=== PATIENT | male | born 1945 | race Caucasian/White ===

== ENCOUNTER 2020-08-02 11:58 | Inpatient (IN) | payer BC ==
[~2020-08-02] VITALS: Ht 373.4 cm; Wt 81.3 kg
[2020-08-02] MEDS ORDERED: AZITHROMYCIN 500 MG in DEXT 5% WATER 250 ML IV ONE (12:15)
[2020-08-02] MEDS ORDERED: DEXAMETHASONE 10 MG/ML VIAL IV ONE (12:15)
[2020-08-02] MEDS ORDERED: CEFTRIAXONE 1 G PREMIX 50 ML IV ONE (12:15)
[2020-08-02] MEDS ORDERED: DILTIAZEM HCL 5MG/ML 5ML VIAL IV ONE ×2 (12:30→14:45)
[2020-08-02 13:07] LABS: BASOPHILS % 0.2 % (0.0-2.0); HEMATOCRIT. 35.4 % (42.0-52.0); HEMOGLOBIN. 11.5 g/dL (14.0-18.0); LYMPHOCYTES % 7.6 % (20.0-50.0); MEAN CORPUSCULAR HEMOGLOBIN 30.1 pg (28.0-32.0); MEAN CORPUSCULAR VOLUME 93.1 fL (80.0-94.0); MEAN PLATELET VOLUME 8.3 fl (7.4-10.4); MONOCYTES % 4.3 % (2.0-8.0); NEUTROPHILS % 87.9 % (40.0-76.0); PLATELET 211 x1000/uL (130-400); RED BLOOD CELL COUNT 3.81 mill/uL (4.7-6.1); RED CELL DISTRIBUTION WIDTH 15.4 % (11.6-14.6)
[2020-08-02 13:10] LABS: CHLORIDE 104 mEq/L (98-107)
[2020-08-02 13:19] LABS: CREATINE KINASE 26 IU/L (39-308)
[2020-08-02 13:32] LABS: D-DIMER 0.97 mg/L FEU (<0.50); INR 1.2; PROTHROMBIN TIME 12.4 sec (9.6-11.0)
[2020-08-02 14:43] LABS: BG BASE EXCESS 1.6 mmol/L (-2.0-2.0); BG CARBOXYHEMOGLOBIN 0.1 % (0.5-1.5); BG DEOXYHEMOGLOBIN 5.7 % (0.0-5.0); BG FRACTION INSPIRED OXYGEN 44; BG HCO3 ACT 23.6 mmol/L (22.0-26.0); BG METHEMOGLOBIN 0.3 % (0.0-1.5); BG OXYGEN SATURATION 94.3 % (92.0-98.5); BG OXYHEMOGLOBIN 93.9 % (94.0-97.0); BG PCO2 29.1 mmHg (35.0-45.0); BG PH 7.527 (7.350-7.450); BG PO2 69.8 mmHg (75.0-100.0); BG SAMPLE SITE RIGHT RADIAL; BG VENT MODE NASAL CANNULA
[2020-08-02] MEDS ORDERED: FUROSEMIDE 20MG/2ML VIAL IVP ONE (15:00)
[2020-08-03 05:17] LABS: CLARITY URINE CLEAR (CLEAR); COLOR URINE DARK YELLOW (YELLOW); KETONES URINE TRACE (NEGATIVE); LEUKOCYTE ESTERASE URINE TRACE (NEGATIVE); NITRITE URINE NEGATIVE (NEGATIVE); OCCULT BLOOD URINE NEGATIVE (NEGATIVE); PROTEIN URINE 2+ (NEGATIVE); SPECIFIC GRAVITY URINE 1.031 (1.005-1.030)
[2020-08-03] MEDS ORDERED: DILTIAZEM HCL 5MG/ML 5ML VIAL IV NR (08:15)
[2020-08-03] MEDS: METOPROLOL TARTRATE 50MG TABLET PO SCH ×2 (09:00→13:52)
[2020-08-03] MEDS ORDERED: ACETAMINOPHEN 325MG TABLET PO PRN ×2 (10:45)
[2020-08-03] MEDS ORDERED: DOCUSATE SODIUM 100MG CAPSULE PO PRN (10:45)
[2020-08-03] MEDS ORDERED: GUAIFENESIN 200MG/10ML SUGAR FREE UDC PO PRN (10:45)
[2020-08-03] MEDS ORDERED: NA PHOS,M-B/NA PHOS,DI-BA ENEMA 118ML PR PRN (10:45)
[2020-08-03] MEDS ORDERED: MAGNESIUM/ALUMINUM HYDROXIDE/SIMETHICONE 30ML UDC PO PRN (10:45)
[2020-08-03] MEDS ORDERED: AMIODARONE HCL 50MG/ML 3ML VIAL IV ONE (10:45)
[2020-08-03] MEDS ORDERED: ACETAMINOPHEN 650MG/20.3ML UDC GT PRN ×2 (10:45)
[2020-08-03] MEDS ORDERED: ONDANSETRON HCL 4MG/2ML INJ IV PRN (10:45)
[2020-08-03] MEDS ORDERED: AMIODARONE HCL 900 MG in DEXT 5% WATER 482 ML IV PRN ×2 (10:45→20:15)
[2020-08-03] MEDS ORDERED: ACETAMINOPHEN 650MG SUPP PR PRN ×2 (10:45)
[2020-08-03] MEDS ORDERED: HYDROCODONE/APAP 7.5/325MG 1 TAB TABLET PO PRN (10:45)
[2020-08-03] MEDS ORDERED: CLONIDINE 0.1MG TABLET PO PRN (10:45)
[2020-08-03] MEDS ORDERED: ENOXAPARIN 40MG/0.4ML SYR SUBCUT SCH (12:00)
[2020-08-03] MEDS: DILTIAZEM HCL 30MG TABLET PO SCH ×3 (12:00→18:40)
[2020-08-03] MEDS ORDERED: SODIUM CHLORIDE 0.9% 1000ML BAG (SEPSIS BOLUS) IV ONE (12:45)
[2020-08-03] MEDS ORDERED: DIGOXIN 500MCG/2ML AMP IV NR ×3 (12:45→23:30)
[2020-08-03] MEDS ORDERED: SODIUM CHLORIDE 0.9% 500 ML IV ONE (12:45)
[2020-08-03 15:33] LABS: HEMATOCRIT. 35.3 % (42.0-52.0); HEMOGLOBIN. 11.3 g/dL (14.0-18.0); MEAN CORPUSCULAR HEMOGLOBIN 29.9 pg (28.0-32.0); MEAN CORPUSCULAR VOLUME 93.2 fL (80.0-94.0); PLATELET 211 x1000/uL (130-400); RED BLOOD CELL COUNT 3.79 mill/uL (4.7-6.1); RED CELL DISTRIBUTION WIDTH 15.5 % (11.6-14.6)
[2020-08-03 15:37] LABS: CHLORIDE 100 mEq/L (98-107)
[2020-08-03 15:47] LABS: CREATINE KINASE 224 IU/L (39-308)
[2020-08-03 17:15] LABS: PLATELET ESTIMATE NORMAL
[2020-08-03] MEDS: ENOXAPARIN 60MG/0.6ML SYR SUBCUT SCH (17:29)
[2020-08-03] MEDS ORDERED: ALBUTEROL 6.7GM HFA INHALER ORI PRN (20:15)
[2020-08-04 00:07] LABS: CREATINE KINASE MB FRACTION 1.1 ng/mL (0.5-3.6)
[2020-08-04 06:17] LABS: HEMATOCRIT. 34.1 % (42.0-52.0); HEMOGLOBIN. 11.1 g/dL (14.0-18.0); MEAN CORPUSCULAR HEMOGLOBIN 29.9 pg (28.0-32.0); MEAN CORPUSCULAR VOLUME 91.8 fL (80.0-94.0); MEAN PLATELET VOLUME 7.9 fl (7.4-10.4); PLATELET 182 x1000/uL (130-400); RED BLOOD CELL COUNT 3.71 mill/uL (4.7-6.1); RED CELL DISTRIBUTION WIDTH 15.2 % (11.6-14.6)
[2020-08-04 06:25] LABS: CHLORIDE 99 mEq/L (98-107)
[2020-08-04 06:31] LABS: LDL CHOLESTEROL 54 mg/dL (5-100)
[2020-08-04 06:33] LABS: HDL CHOLESTEROL 32 mg/dL (40-59)
[2020-08-04 06:53] LABS: T4 FREE 1.07 ng/dL (0.76-1.46)
[2020-08-04] MEDS: AZITHROMYCIN 500 MG in SODIUM CHLORIDE 0.9% 250 ML IV SCH (07:56)
[2020-08-04] MEDS: DILTIAZEM HCL 30MG TABLET PO SCH (07:57)
[2020-08-04 08:23] LABS: PLATELET ESTIMATE NORMAL
[2020-08-04] MEDS: METOPROLOL TARTRATE 50MG TABLET PO SCH ×2 (09:00→21:38)
[2020-08-04] MEDS: ENOXAPARIN 60MG/0.6ML SYR SUBCUT SCH ×2 (10:27→18:07)
[2020-08-04 15:13] LABS: CREATINE KINASE 188 IU/L (39-308)
[2020-08-04 15:16] LABS: CREATINE KINASE MB FRACTION < 1.0 ng/mL (0.5-3.6)
[2020-08-04 15:21] LABS: T4 FREE 1.08 ng/dL (0.76-1.46)
[2020-08-05] MEDS: AZITHROMYCIN 500 MG in SODIUM CHLORIDE 0.9% 250 ML IV SCH (01:45)
[2020-08-05 05:47] LABS: CREATINE KINASE MB FRACTION < 1.0 ng/mL (0.5-3.6)
[2020-08-05 05:50] LABS: CREATINE KINASE 110 IU/L (39-308)
[2020-08-05] MEDS: ENOXAPARIN 60MG/0.6ML SYR SUBCUT SCH (07:35)
[2020-08-05] MEDS: METOPROLOL TARTRATE 50MG TABLET PO SCH (10:05)
[2020-08-05] MEDS: DEXAMETHASONE 4MG TABLET PO SCH (14:09)
[2020-08-06] MEDS: ENOXAPARIN 60MG/0.6ML SYR SUBCUT SCH ×3 (00:30→18:00)
[2020-08-06] MEDS: METOPROLOL TARTRATE 50MG TABLET PO SCH ×3 (00:31→23:14)
[2020-08-06] MEDS: DEXAMETHASONE 4MG TABLET PO SCH ×2 (00:31→23:14)
[2020-08-06] MEDS: AMIODARONE HCL 200 MG TABLET PO SCH ×3 (00:42→23:14)
[2020-08-06] MEDS: AZITHROMYCIN 500 MG in DEXT 5% WATER 250 ML IV SCH (02:42)
[2020-08-07] MEDS: DEXT 5%/0.9% NACL 1,000 ML IV SCH ×2 (00:19→13:14)
[2020-08-07] MEDS: AZITHROMYCIN 500 MG in DEXT 5% WATER 250 ML IV SCH (01:26)
[2020-08-07] MEDS: ENOXAPARIN 60MG/0.6ML SYR SUBCUT SCH ×2 (05:49→17:55)
[2020-08-07] MEDS: AMIODARONE HCL 200 MG TABLET PO SCH (09:00)
[2020-08-07] MEDS: METOPROLOL TARTRATE 50MG TABLET PO SCH (09:00)
[2020-08-07 12:00] VITALS: BP_SYST 121; BP_SYST 160; BP_DIAS 74
[2020-08-07 16:00] VITALS: BP 109/56
[2020-08-07 20:00] VITALS: BP 100/68
[2020-08-07 22:00] LABS: HEMATOCRIT. 28.6 % (42.0-52.0); HEMOGLOBIN. 9.6 g/dL (14.0-18.0); MEAN CORPUSCULAR HEMOGLOBIN 30.4 pg (28.0-32.0); MEAN CORPUSCULAR VOLUME 90.7 fL (80.0-94.0); MEAN PLATELET VOLUME 8.4 fl (7.4-10.4); PLATELET 182 x1000/uL (130-400); RED BLOOD CELL COUNT 3.15 mill/uL (4.7-6.1); RED CELL DISTRIBUTION WIDTH 14.7 % (11.6-14.6)
[2020-08-07 22:15] LABS: CHLORIDE 104 mEq/L (98-107)
[2020-08-07 22:34] LABS: PLATELET ESTIMATE NORMAL
[2020-08-08] VITALS: BP 111/70
[2020-08-08] MEDS: DEXAMETHASONE 4MG TABLET PO SCH ×2 (01:00→22:53)
[2020-08-08] MEDS: AZITHROMYCIN 500 MG in DEXT 5% WATER 250 ML IV SCH (01:00)
[2020-08-08] MEDS: METOPROLOL TARTRATE 50MG TABLET PO SCH ×2 (01:01→08:56)
[2020-08-08] MEDS: AMIODARONE HCL 200 MG TABLET PO SCH ×3 (01:02→22:53)
[2020-08-08 04:00] VITALS: BP 95/54
[2020-08-08] MEDS: DEXT 5%/0.9% NACL 1,000 ML IV SCH ×2 (07:09→22:54)
[2020-08-08] MEDS: ENOXAPARIN 60MG/0.6ML SYR SUBCUT SCH ×2 (07:09→18:59)
[2020-08-08 08:00] VITALS: BP 99/53
[2020-08-08] MEDS ORDERED: DABI150C PO (08:03)
[2020-08-08] MEDS ORDERED: SERT50TA12 PO (08:08)
[2020-08-08] MEDS ORDERED: METO100T9 PO (08:08)
[2020-08-08] MEDS ORDERED: EZET10TA13 PO (08:08)
[2020-08-08] MEDS ORDERED: LEVO200T8 PO (08:08)
[2020-08-08] MEDS ORDERED: ATOR-2 PO (08:14)
[2020-08-08] MEDS ORDERED: TEST75GE TP (08:14)
[2020-08-08] MEDS ORDERED: OMEP40CA12 PO (08:14)
[2020-08-08] MEDS ORDERED: ALBU2.5V13 IH (08:14)
[2020-08-08] MEDS ORDERED: ERGO500013 (08:14)
[2020-08-08] MEDS ORDERED: SODIUM CHLORIDE 0.9% 500 ML IV ONE (12:30)
[2020-08-08 12:56] VITALS: BP 95/58
[2020-08-08 17:01] VITALS: BP 116/75
[2020-08-08 20:00] VITALS: BP 107/62
[2020-08-09] VITALS: BP 105/52
[2020-08-09] MEDS: AZITHROMYCIN 500 MG in DEXT 5% WATER 250 ML IV SCH (00:56)
[2020-08-09 04:00] VITALS: BP 113/73
[2020-08-09] MEDS: ENOXAPARIN 60MG/0.6ML SYR SUBCUT SCH ×2 (05:37→17:33)
[2020-08-09] MEDS: AMIODARONE HCL 200 MG TABLET PO SCH ×2 (09:10→22:06)
[2020-08-09 12:00] VITALS: BP 117/84
[2020-08-09 16:00] VITALS: BP 124/75
[2020-08-09] MEDS: DEXT 5%/0.9% NACL 1,000 ML IV SCH (17:33)
[2020-08-09 20:00] VITALS: BP 117/58
[2020-08-09] MEDS: DEXAMETHASONE 4MG TABLET PO SCH (22:05)
[2020-08-10] VITALS: BP 116/70
[2020-08-10 04:00] VITALS: BP 129/89
[2020-08-10] MEDS: ENOXAPARIN 60MG/0.6ML SYR SUBCUT SCH (05:30)
[2020-08-10 08:00] VITALS: BP 134/83
[2020-08-10] MEDS: AMIODARONE HCL 200 MG TABLET PO SCH ×2 (09:24→22:25)
[2020-08-10] MEDS: DEXT 5%/0.9% NACL 1,000 ML IV SCH (09:25)
[2020-08-10] MEDS: METOPROLOL TARTRATE 25MG TABLET PO SCH ×2 (09:27→22:26)
[2020-08-10 12:00] VITALS: BP 112/61
[2020-08-10 16:00] VITALS: BP 148/88
[2020-08-10] MEDS: APIXABAN 5 MG TABLET PO SCH (17:57)
[2020-08-10 20:00] VITALS: BP 135/78
[2020-08-10] MEDS: DEXAMETHASONE 4MG TABLET PO SCH (22:26)
[2020-08-11] VITALS: BP 128/60
[2020-08-11 04:00] VITALS: BP 130/70
[2020-08-11 08:00] VITALS: BP 130/86
[2020-08-11] MEDS: AMIODARONE HCL 200 MG TABLET PO SCH ×2 (09:27→21:27)
[2020-08-11] MEDS: APIXABAN 5 MG TABLET PO SCH ×2 (09:27→18:02)
[2020-08-11] MEDS: METOPROLOL TARTRATE 25MG TABLET PO SCH (09:28)
[2020-08-11 12:00] VITALS: BP 122/86
[2020-08-11 16:00] VITALS: BP 139/82
[2020-08-11] MEDS: ALBUTEROL 6.7GM HFA INHALER ORI SCH ×2 (18:02→21:27)
[2020-08-11 20:00] VITALS: BP 129/80
[2020-08-11] MEDS: DEXT 5%/0.9% NACL 1,000 ML IV SCH (21:25)
[2020-08-11] MEDS: DEXAMETHASONE 4MG TABLET PO SCH (21:26)
[2020-08-11] MEDS: METOPROLOL TARTRATE 50MG TABLET PO SCH (21:26)
[2020-08-12] VITALS: BP 125/77
[2020-08-12] MEDS: ALBUTEROL 6.7GM HFA INHALER ORI SCH ×4 (03:14→21:43)
[2020-08-12 04:00] VITALS: BP 136/88
[2020-08-12 08:00] VITALS: BP 120/80
[2020-08-12] MEDS: CHOLECALCIFEROL (D3) 1000 UNIT TABLET PO SCH (09:00)
[2020-08-12] MEDS: ASCORBIC ACID 500 MG TABLET PO SCH ×2 (09:10→16:37)
[2020-08-12] MEDS: AMIODARONE HCL 200 MG TABLET PO SCH ×2 (09:10→21:42)
[2020-08-12] MEDS: METOPROLOL TARTRATE 50MG TABLET PO SCH ×2 (09:10→21:00)
[2020-08-12] MEDS: APIXABAN 5 MG TABLET PO SCH ×2 (09:11→16:37)
[2020-08-12] MEDS: ZINC SULFATE 220 MG ( 50 ) CAPSULE PO SCH (09:11)
[2020-08-12] MEDS ORDERED: FUROSEMIDE 40MG/4ML VIAL IVP SCH (09:30)
[2020-08-12 12:00] VITALS: BP 131/83
[2020-08-12 16:00] VITALS: BP 125/76
[2020-08-12] MEDS ORDERED: CEFTRIAXONE 1,000 MG in DEXTROSE 5% WATER 50 ML IV SCH (18:00)
[2020-08-12] MEDS: CEFEPIME 2,000 MG in DEXT 5% WATER 100 ML IV SCH (18:22)
[2020-08-12] MEDS: DOXYCYCLINE 100 MG in DEXT 5% WATER 100 ML IV SCH (19:30)
[2020-08-12 20:00] VITALS: BP 101/76
[2020-08-12 21:40] LABS: HEMATOCRIT. 25.8 % (42.0-52.0); HEMOGLOBIN. 8.5 g/dL (14.0-18.0); MEAN CORPUSCULAR HEMOGLOBIN 30.5 pg (28.0-32.0); MEAN CORPUSCULAR VOLUME 92.1 fL (80.0-94.0); MEAN PLATELET VOLUME 8.2 fl (7.4-10.4); PLATELET 245 x1000/uL (130-400); RED CELL DISTRIBUTION WIDTH 15.5 % (11.6-14.6)
[2020-08-12] MEDS: DEXAMETHASONE 4MG TABLET PO SCH (21:42)
[2020-08-12 21:53] LABS: CHLORIDE 102 mEq/L (98-107)
[2020-08-12 22:22] LABS: NUCLEATED RED BLOOD CELLS 1 /100 WBC; PLATELET ESTIMATE NORMAL
[2020-08-13] VITALS: BP 109/65
[2020-08-13 04:00] VITALS: BP 106/74
[2020-08-13] MEDS: ALBUTEROL 6.7GM HFA INHALER ORI SCH ×4 (04:00→21:03)
[2020-08-13] MEDS: DOXYCYCLINE 100 MG in DEXT 5% WATER 100 ML IV SCH ×2 (04:54→20:58)
[2020-08-13] MEDS: CEFEPIME 2,000 MG in DEXT 5% WATER 100 ML IV SCH ×2 (04:54→18:42)
[2020-08-13 06:40] LABS: HEMATOCRIT. 25.9 % (42.0-52.0); HEMOGLOBIN. 8.6 g/dL (14.0-18.0); MEAN CORPUSCULAR HEMOGLOBIN 30.5 pg (28.0-32.0); MEAN CORPUSCULAR VOLUME 92.1 fL (80.0-94.0); PLATELET 225 x1000/uL (130-400); RED BLOOD CELL COUNT 2.81 mill/uL (4.7-6.1); RED CELL DISTRIBUTION WIDTH 15.5 % (11.6-14.6)
[2020-08-13 06:49] LABS: CHLORIDE 103 mEq/L (98-107)
[2020-08-13 06:56] LABS: PHOSPHORUS 3.7 mg/dL (2.5-4.9)
[2020-08-13 07:50] LABS: INR 1.3
[2020-08-13 08:00] VITALS: BP 124/68
[2020-08-13] MEDS: ASCORBIC ACID 500 MG TABLET PO SCH ×2 (09:00→16:32)
[2020-08-13] MEDS: APIXABAN 5 MG TABLET PO SCH ×2 (09:51→16:32)
[2020-08-13] MEDS: ZINC SULFATE 220 MG ( 50 ) CAPSULE PO SCH (09:52)
[2020-08-13] MEDS: CHOLECALCIFEROL (D3) 1000 UNIT TABLET PO SCH (09:52)
[2020-08-13] MEDS: METOPROLOL TARTRATE 50MG TABLET PO SCH ×2 (09:52→20:54)
[2020-08-13] MEDS: AMIODARONE HCL 200 MG TABLET PO SCH ×3 (09:54→20:58)
[2020-08-13 12:00] VITALS: BP 113/68
[2020-08-13 14:25] LABS: NUCLEATED RED BLOOD CELLS 1 /100 WBC; PLATELET ESTIMATE NORMAL
[2020-08-13 16:00] VITALS: BP 108/70
[2020-08-13] MEDS ORDERED: FUROSEMIDE 40MG/4ML VIAL IVP NR (17:00)
[2020-08-13] MEDS ORDERED: IVERMECTIN 3 MG TABLET PO NR (20:00)
[2020-08-13] MEDS: DEXAMETHASONE 4MG TABLET PO SCH (21:02)
[2020-08-14] VITALS: BP 118/64
[2020-08-14 04:00] VITALS: BP 114/68
[2020-08-14] MEDS: ALBUTEROL 6.7GM HFA INHALER ORI SCH ×4 (04:59→21:20)
[2020-08-14] MEDS: DOXYCYCLINE 100 MG in DEXT 5% WATER 100 ML IV SCH ×2 (04:59→20:06)
[2020-08-14 08:00] VITALS: BP 107/51
[2020-08-14] MEDS: CEFEPIME 2,000 MG in DEXT 5% WATER 100 ML IV SCH ×2 (08:12→17:37)
[2020-08-14] MEDS: CHOLECALCIFEROL (D3) 1000 UNIT TABLET PO SCH (09:00)
[2020-08-14] MEDS: ZINC SULFATE 220 MG ( 50 ) CAPSULE PO SCH (10:17)
[2020-08-14] MEDS: FUROSEMIDE 20MG/2ML VIAL IVP SCH (10:17)
[2020-08-14] MEDS: APIXABAN 5 MG TABLET PO SCH ×2 (10:18→17:37)
[2020-08-14] MEDS: AMIODARONE HCL 200 MG TABLET PO SCH ×2 (10:18→21:20)
[2020-08-14] MEDS: ASCORBIC ACID 500 MG TABLET PO SCH ×2 (10:18→17:38)
[2020-08-14] MEDS: METOPROLOL TARTRATE 50MG TABLET PO SCH ×2 (10:19→21:00)
[2020-08-14 16:00] VITALS: BP 101/70
[2020-08-14 20:00] VITALS: BP 101/64
[2020-08-15] VITALS: BP 109/49
[2020-08-15 04:00] VITALS: BP 99/65
[2020-08-15] MEDS: ALBUTEROL 6.7GM HFA INHALER ORI SCH ×4 (05:16→21:55)
[2020-08-15] MEDS: DOXYCYCLINE 100 MG in DEXT 5% WATER 100 ML IV SCH ×2 (05:16→17:17)
[2020-08-15] MEDS: CEFEPIME 2,000 MG in DEXT 5% WATER 100 ML IV SCH ×2 (07:28→17:17)
[2020-08-15 08:00] VITALS: BP 91/62
[2020-08-15] MEDS: AMIODARONE HCL 200 MG TABLET PO SCH ×2 (09:53→21:54)
[2020-08-15] MEDS: FUROSEMIDE 20MG/2ML VIAL IVP SCH (09:53)
[2020-08-15] MEDS: CHOLECALCIFEROL (D3) 1000 UNIT TABLET PO SCH (09:53)
[2020-08-15] MEDS: ZINC SULFATE 220 MG ( 50 ) CAPSULE PO SCH (09:53)
[2020-08-15] MEDS: APIXABAN 5 MG TABLET PO SCH ×2 (09:53→17:16)
[2020-08-15] MEDS: METOPROLOL TARTRATE 50MG TABLET PO SCH ×2 (09:56→21:00)
[2020-08-15] MEDS: ASCORBIC ACID 500 MG TABLET PO SCH ×2 (09:58→17:16)
[2020-08-15 12:00] VITALS: BP 91/62
[2020-08-15 16:00] VITALS: BP 92/51
[2020-08-15 20:00] VITALS: BP 102/53
[2020-08-16] VITALS: BP 104/61
[2020-08-16 04:00] VITALS: BP 94/52
[2020-08-16] MEDS: ALBUTEROL 6.7GM HFA INHALER ORI SCH ×4 (04:01→21:39)
[2020-08-16] MEDS: CEFEPIME 2,000 MG in DEXT 5% WATER 100 ML IV SCH ×2 (05:06→17:48)
[2020-08-16] MEDS: DOXYCYCLINE 100 MG in DEXT 5% WATER 100 ML IV SCH ×2 (05:44→17:57)
[2020-08-16 08:00] VITALS: BP 104/50
[2020-08-16] MEDS ORDERED: IVERMECTIN 3 MG TABLET PO NR (09:00)
[2020-08-16] MEDS: METOPROLOL TARTRATE 50MG TABLET PO SCH ×2 (09:00→21:00)
[2020-08-16] MEDS: CHOLECALCIFEROL (D3) 1000 UNIT TABLET PO SCH (11:34)
[2020-08-16] MEDS: ZINC SULFATE 220 MG ( 50 ) CAPSULE PO SCH (11:34)
[2020-08-16] MEDS: APIXABAN 5 MG TABLET PO SCH ×2 (11:34→17:47)
[2020-08-16] MEDS: AMIODARONE HCL 200 MG TABLET PO SCH ×2 (11:35→21:37)
[2020-08-16] MEDS: FUROSEMIDE 20MG/2ML VIAL IVP SCH (11:36)
[2020-08-16] MEDS: ASCORBIC ACID 500 MG TABLET PO SCH ×2 (11:40→17:47)
[2020-08-16 12:00] VITALS: BP 114/88
[2020-08-16 16:00] VITALS: BP 108/64
[2020-08-16 20:00] VITALS: BP 105/52
[2020-08-17] VITALS: BP 111/60
[2020-08-17] MEDS: ALBUTEROL 6.7GM HFA INHALER ORI SCH ×4 (03:16→21:01)
[2020-08-17 04:00] VITALS: BP 120/63
[2020-08-17] MEDS: CEFEPIME 2,000 MG in DEXT 5% WATER 100 ML IV SCH (05:09)
[2020-08-17] MEDS: DOXYCYCLINE 100 MG in DEXT 5% WATER 100 ML IV SCH (06:03)
[2020-08-17 08:00] VITALS: BP 110/70
[2020-08-17] MEDS: METOPROLOL TARTRATE 50MG TABLET PO SCH ×2 (09:00→21:00)
[2020-08-17] MEDS: CHOLECALCIFEROL (D3) 1000 UNIT TABLET PO SCH (09:43)
[2020-08-17] MEDS: ASCORBIC ACID 500 MG TABLET PO SCH ×2 (09:43→17:23)
[2020-08-17] MEDS: FUROSEMIDE 20MG/2ML VIAL IVP SCH (09:43)
[2020-08-17] MEDS: AMIODARONE HCL 200 MG TABLET PO SCH ×2 (09:44→21:01)
[2020-08-17] MEDS: ZINC SULFATE 220 MG ( 50 ) CAPSULE PO SCH (09:44)
[2020-08-17] MEDS: APIXABAN 5 MG TABLET PO SCH ×2 (09:45→17:23)
[2020-08-17 12:00] VITALS: BP 90/46
[2020-08-17 16:00] VITALS: BP 90/48
[2020-08-17 20:00] VITALS: BP 99/55
[2020-08-18] VITALS: BP 99/51
[2020-08-18 04:00] VITALS: BP 117/58
[2020-08-18] MEDS: LEVOTHYROXINE SODIUM 200MCG TABLET PO SCH (05:50)
[2020-08-18] MEDS: ALBUTEROL 6.7GM HFA INHALER ORI SCH ×4 (05:50→21:22)
[2020-08-18 08:00] VITALS: BP 100/53
[2020-08-18] MEDS: METOPROLOL TARTRATE 50MG TABLET PO SCH ×2 (09:00→21:00)
[2020-08-18] MEDS: ASCORBIC ACID 500 MG TABLET PO SCH (09:00)
[2020-08-18] MEDS: PANTOPRAZOLE SODIUM 40 MG/VIAL IV SCH (09:00)
[2020-08-18] MEDS: FUROSEMIDE 20MG/2ML VIAL IVP SCH (09:00)
[2020-08-18] MEDS: APIXABAN 5 MG TABLET PO SCH (09:37)
[2020-08-18] MEDS: ZINC SULFATE 220 MG ( 50 ) CAPSULE PO SCH (09:37)
[2020-08-18] MEDS: AMIODARONE HCL 200 MG TABLET PO SCH ×2 (09:37→21:22)
[2020-08-18] MEDS: CHOLECALCIFEROL (D3) 1000 UNIT TABLET PO SCH (09:37)
[2020-08-18 12:44] LABS: BG BASE EXCESS 12.1 mmol/L (-2.0-2.0); BG CARBOXYHEMOGLOBIN 0.9 % (0.5-1.5); BG DEOXYHEMOGLOBIN 1.2 % (0.0-5.0); BG FRACTION INSPIRED OXYGEN 44; BG HCO3 ACT 36.6 mmol/L (22.0-26.0); BG METHEMOGLOBIN 0.4 % (0.0-1.5); BG OXYGEN SATURATION 98.8 % (92.0-98.5); BG OXYHEMOGLOBIN 97.5 % (94.0-97.0); BG PCO2 48.4 mmHg (35.0-45.0); BG PH 7.496 (7.350-7.450); BG PO2 137.8 mmHg (75.0-100.0); BG SAMPLE SITE RIGHT RADIAL; BG TOTAL HEMOGLOBIN 7.8 g/dL (12.0-18.0); BG VENT MODE MASK - SIMPLE
[2020-08-18 15:31] LABS: HEMATOCRIT. 22.9 % (42.0-52.0); HEMOGLOBIN. 7.5 g/dL (14.0-18.0); MEAN CORPUSCULAR HEMOGLOBIN 30.8 pg (28.0-32.0); MEAN CORPUSCULAR VOLUME 94.8 fL (80.0-94.0); PLATELET 193 x1000/uL (130-400); RED BLOOD CELL COUNT 2.42 mill/uL (4.7-6.1)
[2020-08-18 15:36] LABS: CHLORIDE 96 mEq/L (98-107)
[2020-08-18 16:00] VITALS: BP 110/70
[2020-08-18] MEDS ORDERED: PANTOPRAZOLE SODIUM 40 MG/VIAL IV SCH (17:45)
[2020-08-18 19:25] LABS: PLATELET ESTIMATE NORMAL
[2020-08-18 20:00] VITALS: BP 100/66
[2020-08-19] VITALS: BP 101/70
[2020-08-19 04:00] VITALS: BP 100/63
[2020-08-19] MEDS: ALBUTEROL 6.7GM HFA INHALER ORI SCH ×4 (05:19→21:05)
[2020-08-19] MEDS: LEVOTHYROXINE SODIUM 200MCG TABLET PO SCH (06:10)
[2020-08-19 08:00] VITALS: BP 90/52
[2020-08-19] MEDS: METOPROLOL TARTRATE 50MG TABLET PO SCH ×2 (09:00→21:00)
[2020-08-19] MEDS: FUROSEMIDE 20MG/2ML VIAL IVP SCH (09:00)
[2020-08-19] MEDS: CHOLECALCIFEROL (D3) 1000 UNIT TABLET PO SCH (09:27)
[2020-08-19] MEDS: AMIODARONE HCL 200 MG TABLET PO SCH ×2 (09:27→21:05)
[2020-08-19] MEDS: APIXABAN 5 MG TABLET PO SCH ×2 (09:27→18:28)
[2020-08-19] MEDS: ZINC SULFATE 220 MG ( 50 ) CAPSULE PO SCH (09:28)
[2020-08-19] MEDS: PANTOPRAZOLE SODIUM 40 MG/VIAL IV SCH (09:28)
[2020-08-19] MEDS: DOCUSATE SODIUM 100MG CAPSULE PO PRN (10:56)
[2020-08-19 12:00] VITALS: BP 90/52
[2020-08-19 12:53] LABS: BG BASE EXCESS 10.3 mmol/L (-2.0-2.0); BG CARBOXYHEMOGLOBIN 1.2 % (0.5-1.5); BG DEOXYHEMOGLOBIN 14.2 % (0.0-5.0); BG HCO3 ACT 34.7 mmol/L (22.0-26.0); BG METHEMOGLOBIN 0.1 % (0.0-1.5); BG OXYGEN SATURATION 85.6 % (92.0-98.5); BG OXYHEMOGLOBIN 84.5 % (94.0-97.0); BG PCO2 46.9 mmHg (35.0-45.0); BG PH 7.487 (7.350-7.450); BG PO2 49.1 mmHg (75.0-100.0); BG SAMPLE SITE RIGHT RADIAL; BG TOTAL HEMOGLOBIN 7.9 g/dL (12.0-18.0); BG VENT MODE ROOM AIR
[2020-08-19 16:00] VITALS: BP 95/53
[2020-08-19 18:38] LABS: TOTAL IRON BINDING CAPACITY 252 ug/dL (250-450)
[2020-08-19 18:53] LABS: FOLIC ACID (FOLATE) SERUM 16.8 ng/mL (>5.38)
[2020-08-19 18:59] LABS: HEPATITIS B SURFACE ANTIGEN NEGATIVE
[2020-08-19 19:29] LABS: HEPATITIS A AB IGM NEGATIVE (NEGATIVE)
[2020-08-19 20:00] VITALS: BP 100/52
[2020-08-19] MEDS: IRON SUCROSE COMPLEX 100 MG/5 ML ML IV SCH (23:54)
[2020-08-20] VITALS: BP 118/66
[2020-08-20] MEDS: ALBUTEROL 6.7GM HFA INHALER ORI SCH ×4 (03:57→21:50)
[2020-08-20 04:00] VITALS: BP 100/60
[2020-08-20] MEDS: LEVOTHYROXINE SODIUM 200MCG TABLET PO SCH (06:01)
[2020-08-20 08:16] VITALS: BP 99/63
[2020-08-20] MEDS: FUROSEMIDE 20MG/2ML VIAL IVP SCH (08:57)
[2020-08-20] MEDS: METOPROLOL TARTRATE 50MG TABLET PO SCH ×2 (08:57→21:00)
[2020-08-20] MEDS: PANTOPRAZOLE SODIUM 40 MG/VIAL IV SCH (09:06)
[2020-08-20] MEDS: APIXABAN 5 MG TABLET PO SCH ×2 (09:06→17:53)
[2020-08-20] MEDS: CHOLECALCIFEROL (D3) 1000 UNIT TABLET PO SCH (09:07)
[2020-08-20] MEDS: AMIODARONE HCL 200 MG TABLET PO SCH ×2 (09:07→21:00)
[2020-08-20] MEDS: ZINC SULFATE 220 MG ( 50 ) CAPSULE PO SCH (09:07)
[2020-08-20 12:15] VITALS: BP 98/53
[2020-08-20 16:03] LABS: BASOPHILS % 0.5 % (0.0-2.0); EOSINOPHILS % 2.2 % (0.0-5.0); HEMATOCRIT. 23.6 % (42.0-52.0); HEMOGLOBIN. 7.7 g/dL (14.0-18.0); LYMPHOCYTES % 9.2 % (20.0-50.0); MEAN CORPUSCULAR HEMOGLOBIN 30.7 pg (28.0-32.0); MEAN CORPUSCULAR VOLUME 94.1 fL (80.0-94.0); MEAN PLATELET VOLUME 7.5 fl (7.4-10.4); MONOCYTES % 4.8 % (2.0-8.0); NEUTROPHILS % 83.3 % (40.0-76.0); PLATELET 199 x1000/uL (130-400); RED CELL DISTRIBUTION WIDTH 16.9 % (11.6-14.6)
[2020-08-20 16:08] VITALS: BP 115/52
[2020-08-20 16:30] LABS: CHLORIDE 96 mEq/L (98-107)
[2020-08-20 20:00] VITALS: BP 97/63
[2020-08-20] MEDS: IRON SUCROSE COMPLEX 100 MG/5 ML ML IV SCH (22:22)
[2020-08-21] VITALS (8 sets, daily range): BP systolic 90–171; BP diastolic 47–101
[2020-08-21] MEDS: ALBUTEROL 6.7GM HFA INHALER ORI SCH ×4 (03:39→23:07)
[2020-08-21] MEDS: LEVOTHYROXINE SODIUM 200MCG TABLET PO SCH (06:13)
[2020-08-21] MEDS: METOPROLOL TARTRATE 50MG TABLET PO SCH ×2 (09:46→21:00)
[2020-08-21] MEDS: ZINC SULFATE 220 MG ( 50 ) CAPSULE PO SCH (09:46)
[2020-08-21] MEDS: PANTOPRAZOLE SODIUM 40 MG/VIAL IV SCH (09:46)
[2020-08-21] MEDS: CHOLECALCIFEROL (D3) 1000 UNIT TABLET PO SCH (09:46)
[2020-08-21] MEDS: FUROSEMIDE 20MG/2ML VIAL IVP SCH (09:46)
[2020-08-21] MEDS: AMIODARONE HCL 200 MG TABLET PO SCH ×2 (09:47→23:07)
[2020-08-21] MEDS: APIXABAN 5 MG TABLET PO SCH (17:27)
[2020-08-21] MEDS ORDERED: SODIUM CHLORIDE 0.9% 1000ML BAG (SEPSIS BOLUS) IV NR (21:45)
[2020-08-22] VITALS (8 sets, daily range): BP systolic 98–139; BP diastolic 53–81
[2020-08-22] MEDS: DOCUSATE SODIUM 100MG CAPSULE PO PRN (01:16)
[2020-08-22] MEDS: ALBUTEROL 6.7GM HFA INHALER ORI SCH ×4 (04:12→20:52)
[2020-08-22] MEDS: LEVOTHYROXINE SODIUM 200MCG TABLET PO SCH (06:12)
[2020-08-22 07:04] LABS: HEMATOCRIT. 26.4 % (42.0-52.0); HEMOGLOBIN. 8.8 g/dL (14.0-18.0); MEAN CORPUSCULAR HEMOGLOBIN 31.4 pg (28.0-32.0); MEAN CORPUSCULAR VOLUME 93.9 fL (80.0-94.0); MEAN PLATELET VOLUME 8.2 fl (7.4-10.4); PLATELET 207 x1000/uL (130-400); RED BLOOD CELL COUNT 2.82 mill/uL (4.7-6.1); RED CELL DISTRIBUTION WIDTH 17.1 % (11.6-14.6)
[2020-08-22] MEDS: METOPROLOL TARTRATE 50MG TABLET PO SCH ×2 (09:00→20:50)
[2020-08-22] MEDS: AMIODARONE HCL 200 MG TABLET PO SCH ×2 (09:46→20:52)
[2020-08-22] MEDS: PANTOPRAZOLE SODIUM 40 MG/VIAL IV SCH (09:46)
[2020-08-22] MEDS: APIXABAN 5 MG TABLET PO SCH ×2 (09:47→23:16)
[2020-08-22] MEDS: ZINC SULFATE 220 MG ( 50 ) CAPSULE PO SCH (09:47)
[2020-08-22] MEDS: CHOLECALCIFEROL (D3) 1000 UNIT TABLET PO SCH (09:47)
[2020-08-22 10:14] LABS: CHLORIDE 98 mEq/L (98-107)
[2020-08-22 14:35] LABS: PLATELET ESTIMATE NORMAL
[2020-08-23] VITALS: BP 106/65
[2020-08-23 04:00] VITALS: BP 100/50
[2020-08-23] MEDS: LEVOTHYROXINE SODIUM 200MCG TABLET PO SCH (06:10)
[2020-08-23] MEDS: ALBUTEROL 6.7GM HFA INHALER ORI SCH ×4 (06:10→22:25)
[2020-08-23 08:00] VITALS: BP 98/55
[2020-08-23] MEDS: METOPROLOL TARTRATE 50MG TABLET PO SCH ×2 (09:00→21:00)
[2020-08-23] MEDS: CHOLECALCIFEROL (D3) 1000 UNIT TABLET PO SCH (10:02)
[2020-08-23] MEDS: AMIODARONE HCL 200 MG TABLET PO SCH ×2 (10:02→22:24)
[2020-08-23] MEDS: PANTOPRAZOLE SODIUM 40 MG/VIAL IV SCH (10:02)
[2020-08-23] MEDS: APIXABAN 5 MG TABLET PO SCH ×2 (10:03→16:45)
[2020-08-23] MEDS: ZINC SULFATE 220 MG ( 50 ) CAPSULE PO SCH (10:03)
[2020-08-23] MEDS ORDERED: AMI2 PO (10:04)
[2020-08-23] MEDS ORDERED: CHOL100044 PO (10:04)
[2020-08-23] MEDS ORDERED: METO-539 PO (10:04)
[2020-08-23] MEDS ORDERED: SYN200 PO (10:04)
[2020-08-23] MEDS ORDERED: APIX5TAB PO (10:04)
[2020-08-23 12:00] VITALS: BP 97/55
[2020-08-23 15:53] LABS: BASOPHILS % 0.7 % (0.0-2.0); HEMATOCRIT. 29.3 % (42.0-52.0); HEMOGLOBIN. 9.5 g/dL (14.0-18.0); LYMPHOCYTES % 14.1 % (20.0-50.0); MEAN CORPUSCULAR HEMOGLOBIN 30.8 pg (28.0-32.0); MEAN CORPUSCULAR VOLUME 95.1 fL (80.0-94.0); MONOCYTES % 6.5 % (2.0-8.0); NEUTROPHILS % 77.7 % (40.0-76.0); PLATELET 164 x1000/uL (130-400); RED BLOOD CELL COUNT 3.08 mill/uL (4.7-6.1); RED CELL DISTRIBUTION WIDTH 17.4 % (11.6-14.6)
[2020-08-23 16:00] VITALS: BP 91/50
[2020-08-23 20:00] VITALS: BP 107/65
[2020-08-24] VITALS: BP 100/51
[2020-08-24 04:00] VITALS: BP 100/58
[2020-08-24] MEDS: ALBUTEROL 6.7GM HFA INHALER ORI SCH ×2 (04:00→10:00)
[2020-08-24] MEDS: LEVOTHYROXINE SODIUM 200MCG TABLET PO SCH (06:16)
[2020-08-24 08:00] VITALS: BP 101/53
[2020-08-24] MEDS: ZINC SULFATE 220 MG ( 50 ) CAPSULE PO SCH (08:42)
[2020-08-24] MEDS: APIXABAN 5 MG TABLET PO SCH (08:43)
[2020-08-24] MEDS: AMIODARONE HCL 200 MG TABLET PO SCH (08:43)
[2020-08-24] MEDS: METOPROLOL TARTRATE 50MG TABLET PO SCH (08:43)
[2020-08-24] MEDS: PANTOPRAZOLE SODIUM 40 MG/VIAL IV SCH (08:43)
[2020-08-24] MEDS: CHOLECALCIFEROL (D3) 1000 UNIT TABLET PO SCH (11:20)
[2020-08-24 14:59] VITALS: BP 101/53
== END 2020-08-24 16:30 | disposition home health service (06) | DRG 871 ==
LOC: ER 12:48 → MICUSO 16:51 → EDBEDREQ 16:53 → EDBEDREQDT 08-04 01:35 → EDBEDREQSVC 08-04 01:35 → EDBEDREQTM 08-04 01:35 → 8WST 08-07 07:36
PROVIDERS: ADMIT Family Medicine; ATTEND Family Medicine
PROC: 30233N1 Transfusion of Nonautologous Red Blood Cells into Peripheral Vein, Percutaneous Approach (ICD-10-PCS; principal; 2020-08-21)
DX: A41.89 Other specified sepsis (principal); J96.01 Acute respiratory failure with hypoxia; U07.1 COVID-19; J12.82 Pneumonia due to coronavirus disease 2019; E87.1 Hypo-osmolality and hyponatremia; D62 Acute posthemorrhagic anemia; E44.0 Moderate protein-calorie malnutrition; I47.2 Ventricular tachycardia; I48.20 Chronic atrial fibrillation, unspecified; Z68.1 Body mass index [BMI] 19.9 or less, adult; I42.9 Cardiomyopathy, unspecified; B97.89 Other viral agents as the cause of diseases classified elsewhere; E03.9 Hypothyroidism, unspecified; E78.00 Pure hypercholesterolemia, unspecified; E78.5 Hyperlipidemia, unspecified; I25.10 Atherosclerotic heart disease of native coronary artery without angina pectoris; I10 Essential (primary) hypertension; R74.01 Elevation of levels of liver transaminase levels; R65.20 Severe sepsis without septic shock; K21.9 Gastro-esophageal reflux disease without esophagitis; Z79.01 Long term (current) use of anticoagulants; Z95.1 Presence of aortocoronary bypass graft; Z88.2 Allergy status to sulfonamides; Z79.899 Other long term (current) drug therapy; R62.7 Adult failure to thrive; D50.9 Iron deficiency anemia, unspecified
CPT/HCPCS: 36415; 36600; 71045; 76700; 80048; 80053; 80076; 82248; 82270; 82375; 82550; 82607; 82728; 82746; 82805; 82962; 83540; 83550; 83605; 83615; 83735; 83880; 84100; 84145; 84484; 85025; 85379; 85384; 86140; 86705; 86709; 86803; 86850; 86900; 86920; 87340; 87635; 93005; 99291; A6261; C1893; C9113; J0282; J0456; J0692; J0696; J1100; J1160; J1650; J1940; J3490; J7040; J7042; J7050; J7060; J8540; P9016